=== PATIENT | male | born 1960 | race Caucasian/White ===

== ENCOUNTER 2017-07-11 11:09 | Emergency (ER) | payer OTHER ==
[~2017-07-11] VITALS: Ht 182.9 cm; Wt 78.0 kg
[2017-07-11 11:31] VITALS: BP 196/104
[2017-07-11] MEDS ORDERED: PROAIR HFA8.5 GM INH (11:46)
[2017-07-11] MEDS ORDERED: PRED20TA PO (11:46)
[2017-07-11] MEDS ORDERED: AMLO5TAB4 PO (11:46)
--- NOTE | 2017-07-11 11:47 | PHYS DOC ---
Past Medical History Past Medical History: Hypertension Past Surgical History: Other Additional Past Surgical Histo: TESTICLES Alcohol Use: None Drug Use: None Adult General Chief Complaint Chief Complaint: ASTHMA [facility] HPI Patient is a 57 year old male presents to the emergency department stating that he's had a past medical history of hypertension however he does not take medications for this as he did not have any refills on his prescriptions. Patient also states he's had a past medical history of smoking in which he had smoked for approximately 35 years patient has stopped smoking. Patient states that he is here today because he feels as though he is not able to get a deep breath in. He denies any wheezing. He states that occasionally for short of air but that is not as much as not being able to fill as though he can't get a deep breath in. Patient states that he has history of bronchitis issues in the past. He does not have inhalers at home. He denies any chest pain shortness of air difficulty breathing, or any lower extremity swelling. He states that this time he just fell as though he can't get enough air in. Patient's blood pressure is elevated today here in the emergency department. Review of Systems Review of Systems Constitutional: Denies fever or chills [] Eyes: Denies change in visual acuity, redness, or eye pain [] HENT: Denies nasal congestion or sore throat [] Respiratory: Cough and upper respiratory congestion in the chest area. Denies shortness of air difficulty breathing filled so he can't get a deep breath in. Cardiovascular: No additional information not addressed in HPI [] GI: Denies abdominal pain, nausea, vomiting, bloody stools or diarrhea [] : Denies dysuria or hematuria [] Musculoskeletal: Denies back pain or joint pain [] Integument: Denies rash or skin lesions [] Neurologic: Denies headache, focal weakness or sensory changes [] Endocrine: Denies polyuria or polydipsia [] Allergies Allergies Allergies Coded Allergies Type Severity Reaction Last Updated Verified Penicillins Allergy Unknown 07/11/17 Yes Physical Exam Physical Exam Constitutional: Well developed, well nourished, no acute distress, non-toxic appearance. [] HENT: Normocephalic, atraumatic, bilateral external ears normal, oropharynx moist, no oral exudates, nose normal. Bilateral tympanic membranes appear to be normal. Throat without erythematous or drainage or discharge noted. No exudate noted. Eyes: PERRLA, EOMI, conjunctiva normal, no discharge. [] Neck: Normal range of motion, no tenderness, supple, no stridor. [] Cardiovascular:Heart rate regular rhythm, no murmur [] Lungs & Thorax: Bilateral breath sounds clear to auscultation [] Skin: Warm, dry, no erythema, no rash. [] Back: No tenderness Extremities: No tenderness, no cyanosis, no clubbing, ROM intact, no edema. [] Neurologic: Alert and oriented X 3, normal motor function, normal sensory function, no focal deficits noted. [] Psychologic: Affect normal, judgement normal, mood normal. [] Current Patient Data Vital Signs Vital Signs Date Time Temp Pulse Resp B/P (MAP) Pulse Ox O2 Delivery O2 Flow Rate FiO2 07/11/17 11:31 98.7 103 22 99 Room Air 98.7 EKG EKG [] Radiology/Procedures Radiology/Procedures [] Course & Med Decision Making Course & Med Decision Making Pertinent Labs and Imaging studies reviewed. (See chart for details) Patient will be provided with a prescription for Norvasc in which she can take for his blood pressure. He was recommended to follow-up with his primary care physician in regards to further evaluation of his blood pressure. Patient will be placed on prednisone as well as albuterol. Recommended also follow-up with his primary care physician for further evaluation for upper respiratory congestion. Patient agrees with discharge instructions, treatment regimens and follow-up recommendations. Signs and symptoms to return back to the emergency department has been provided. All questions and concerns been answered at patient's bedside. BP 177/91 at discharge [] Dragon Disclaimer Dragon Disclaimer This electronic medical record was generated, in whole or in part, using a voice recognition dictation system. Departure Departure Impression: Primary Impression: URI (upper respiratory infection) Disposition: 01 HOME, SELF-CARE Condition: STABLE Referrals: LIZZ BINGHAM MD (PCP) Patient Instructions: Upper Respiratory Infection, Adult, [id number] Additional Instructions: Activity as tolerated. Medication as prescribed. Monitor your blood pressure follow-up with your primary care physician. Drink plenty of fluids. Follow-up to primary care physician in the next 3-5 days. Return back to emergency prior signs and symptoms become worse. Scripts Albuterol Sulfate (PROAIR HFA INHALER) 8.5 Gm Hfa.aer.ad 1 PUFF INH PRN Q6HRS Y for SHORTNESS OF BREATH, #1 INHALER 0 Refills Prov: ASHELY VELASQUEZ APRN 07/11/17 Prednisone (PREDNISONE) 20 Mg Tablet 40 MG PO DAILY for 7 Days, #14 TAB Prov: ASHELY VELASQUEZ APRN 07/11/17 Amlodipine Besylate (NORVASC) 5 Mg Tablet 1 TAB PO DAILY, #30 TAB 0 Refills Prov: ASHELY VELASQUEZ APRN 07/11/17 Problem Qualifiers Primary Impression: URI (upper respiratory infection) URI type: unspecified URI Qualified Codes: J06.9 - Acute upper respiratory infection, unspecified ASHELY VELASQUEZ APRN Jul 11, 2017 11:47
== END 2017-07-11 11:53 | disposition home or self-care (01) ==
LOC: ER 11:09
DX: J06.9 Acute upper respiratory infection, unspecified (principal); J45.909 Unspecified asthma, uncomplicated; I10 Essential (primary) hypertension; Z87.891 Personal history of nicotine dependence; Z88.0 Allergy status to penicillin
CPT/HCPCS: 99283